=== PATIENT | male | born 1965 | race American Indian/Alaskan Native ===

== ENCOUNTER 2016-10-24 13:26 | Emergency (ER) | payer SELFPAY ==
[2016-10-24] MEDS ORDERED: NORCO 5/325 PO ONE (15:19)
--- NOTE | 2016-10-24 15:20 | Emergency Department Report ---
ED Lower Extremity HPI - General Chief Complaint: Extremity Injury, Lower Stated Complaint: RT LEG PAIN Time Seen by Provider: 10/24/16 14:55 Source: patient Mode of arrival: Ambulatory Limitations: No Limitations - History of Present Illness Initial Comments: 51M PMH obesity p/w c/o right knee pain s/o mechanical fall yesterday patient slipped on the sidewalk outside his home yesterday while walking outside of house, fell onto her right knee felt that he pulled his hamstring muscle. He shouldn't is ambulatory on exam not in acute distress states he took some Motrin at home which minimally relieved his pain. Sustained no lacerations denies any head trauma was able to get up immediately after the fall. Patient showing me the skin on his knee no visible ecchymosis and no laceration or abrasions. Patient is walking but has slight limp due to pain in his right knee. MD Complaint: thigh injury, knee injury Onset/Timin -: hour(s) Injury: Thigh: Right, Knee: Right Type of Injury: blunt, hyperextension Place: home Severity: moderate Severity scale (0 -10): 6 Improves With: immobilization Worsens With: weight bearing, movement Context: fall Associated Symptoms: swelling, able to partially bear weight, ambulatory - Related Data Home Medications Medication Instructions Recorded Confirmed Last Taken Hydrochlorothiazide 25 mg PO QDAY 02/09/14 09/22/14 09/22/14 Oxycodone HCl/Acetaminophen 1 tab PO BID PRN 02/09/14 09/22/14 09/22/14 [Percocet 10-325 mg] Previous Rx's Medication Instructions Recorded Last Taken Type HYDROcodone/APAP 5-325 [[place] 1 each PO Q6HR PRN #20 tablet 02/09/14 09/22/14 Rx 5/325] Ibuprofen [Motrin] 800 mg PO Q8H #30 tablet 02/09/14 09/22/14 Rx Acetaminophen/Codeine 1 tab PO Q6H PRN #15 tab 09/22/14 Unknown Rx [Acetaminophen-Codeine #3 TAB] Albuterol Sulfate [Proventil HFA] 1 - 2 puff IH Q4H PRN #1 hfa.aer.ad 09/22/14 Unknown Rx Azithromycin [Zithromax] 250 mg PO QDAY #6 tablet 09/22/14 Unknown Rx Ondansetron [Zofran] 4 mg PO Q8HR PRN #5 tablet 09/22/14 Unknown Rx predniSONE [Deltasone] 40 mg PO QDAY #10 tab 09/22/14 Unknown Rx Cyclobenzaprine [Flexeril 10 MG 10 mg PO TID PRN #30 tablet 12/05/14 Unknown Rx TAB] HYDROcodone/ACETAMINOPHEN [[place] 1 each PO Q8H PRN #21 tablet 12/05/14 Unknown Rx 7.5-325 mg TAB] Naproxen [Naprosyn TAB] 500 mg PO BID PRN #20 tablet 10/24/16 Unknown Rx traMADol [Ultram 50 MG tab] 50 mg PO Q6HR PRN #6 tablet 10/24/16 Unknown Rx Allergies Allergy/AdvReac Type Severity Reaction Status Date / Time No Known Allergies Allergy Verified 09/22/14 10:19 ED Review of Systems ROS: Stated complaint: RT LEG PAIN Other details as noted in HPI Constitutional: denies: chills, fever Eyes: denies: eye pain, eye discharge, vision change ENT: denies: ear pain, throat pain Respiratory: denies: cough, shortness of breath, wheezing Cardiovascular: denies: chest pain, palpitations Endocrine: no symptoms reported Gastrointestinal: denies: abdominal pain, nausea, diarrhea Genitourinary: denies: urgency, dysuria Musculoskeletal: denies: back pain, joint swelling, arthralgia Skin: denies: rash, lesions Neurological: denies: headache, weakness, paresthesias Psychiatric: denies: anxiety, depression Hematological/Lymphatic: denies: easy bleeding, easy bruising ED Past Medical Hx - Past Medical History Hx Hypertension: Yes Hx GERD: Yes Additional medical history: varicose veins. chronic back pain - Surgical History Additional Surgical History: hernia repair - Social History Smoking Status: Current Every Day Smoker Substance Use Type: None - Medications Home Medications: Home Medications Medication Instructions Recorded Confirmed Last Taken Type HYDROcodone/APAP 5-325 [[place] 1 each PO Q6HR PRN #20 tablet 02/09/14 09/22/14 Rx 5/325] Hydrochlorothiazide 25 mg PO QDAY 02/09/14 09/22/14 09/22/14 History Ibuprofen [Motrin] 800 mg PO Q8H #30 tablet 02/09/14 09/22/14 09/22/14 Rx Oxycodone HCl/Acetaminophen 1 tab PO BID PRN 02/09/14 09/22/14 09/22/14 History [Percocet 10-325 mg] Acetaminophen/Codeine 1 tab PO Q6H PRN #15 tab 09/22/14 Unknown Rx [Acetaminophen-Codeine #3 TAB] Albuterol Sulfate [Proventil HFA] 1 - 2 puff IH Q4H PRN #1 hfa.aer.ad 09/22/14 Unknown Rx Azithromycin [Zithromax] 250 mg PO QDAY #6 tablet 09/22/14 Unknown Rx Ondansetron [Zofran] 4 mg PO Q8HR PRN #5 tablet 09/22/14 Unknown Rx predniSONE [Deltasone] 40 mg PO QDAY #10 tab 09/22/14 Unknown Rx Cyclobenzaprine [Flexeril 10 MG 10 mg PO TID PRN #30 tablet 12/05/14 Unknown Rx TAB] HYDROcodone/ACETAMINOPHEN [[place] 1 each PO Q8H PRN #21 tablet 12/05/14 Unknown Rx 7.5-325 mg TAB] Naproxen [Naprosyn TAB] 500 mg PO BID PRN #20 tablet 10/24/16 Unknown Rx traMADol [Ultram 50 MG tab] 50 mg PO Q6HR PRN #6 tablet 10/24/16 Unknown Rx ED Physical Exam - General Limitations: No Limitations General appearance: alert, in no apparent distress - Head Head exam: Present: atraumatic, normocephalic - Eye Eye exam: Present: normal appearance, PERRL, EOMI - ENT ENT exam: Present: mucous membranes moist - Neck Neck exam: Present: normal inspection, full ROM - Respiratory Respiratory exam: Present: normal lung sounds bilaterally. Absent: respiratory distress - Cardiovascular Cardiovascular Exam: Present: regular rate, normal rhythm. Absent: systolic murmur, diastolic murmur, rubs, gallop - GI/Abdominal GI/Abdominal exam: Present: soft, normal bowel sounds - Rectal Rectal exam: Present: deferred - Extremities Exam Extremities exam: Present: normal inspection - Expanded Lower Extremity Exam Right Hip exam: Present: normal inspection, full ROM Upper Leg exam: Present: normal inspection, full ROM Knee exam: Present: normal inspection, full ROM, tenderness (mild tenderness medial right knee), posterior draw sign (negative anterior-posterior drawer sign ), pain/laxity with valgus (slight pain with valgus movement), full knee extension ( was able to fully extend knee against resistance) Lower Leg exam: Present: normal inspection, full ROM Ankle exam: Present: normal inspection, full ROM Foot/Toe exam: Present: normal inspection, full ROM Neuro vascular tendon exam: Present: no vascular compromise Gait: Positive: antalgic 1 - Mild tenderness to palpation here - Back Exam Back exam: Present: normal inspection - Neurological Exam Neurological exam: Present: alert, oriented X3, CN II-XII intact, normal gait - Psychiatric Psychiatric exam: Present: normal affect, normal mood - Skin Skin exam: Present: warm, dry, intact, normal color. Absent: rash ED Course Vital Signs 10/24/16 14:01 Temperature 98 F Pulse Rate 69 Respiratory 18 Rate Blood Pressure 156/86 O2 Sat by Pulse 100 Oximetry ED Lower Extremity MDM - Medical Decision Making A/P: Right Knee Sprain, mechanical fall 1-naproxen when necessary 2-RICE therapy, Nile wrap, knee immobilizer 3-follow-up with orthopedics 4-no clinical signs of neurovascular damage distal pulses popliteal distal dorsalis pedis and posterior tibial pulses strong to palpation. No lacerations. Mild pain with valgus movement patient may have hurt his meniscus will give follow-up with orthopedics. Negative anterior-posterior drawer sign. Critical care attestation.: If time is entered above; I have spent that time in minutes in the direct care of this critically ill patient, excluding procedure time. ED Disposition Clinical Impression: Right knee sprain Qualifiers: Encounter type: initial encounter Involved ligament of knee: medial collateral ligament Qualified Code(s): S83.411A - Sprain of medial collateral ligament of right knee, initial encounter Disposition: DISCHARGED TO HOME OR SELFCARE Is pt being admited?: No Does the pt Need Aspirin: No Condition: Stable Instructions: Knee Pain (ED), RICE Therapy (ED), Knee Immobilizer (ED) Prescriptions: Naproxen [Naprosyn TAB] 500 mg PO BID PRN #20 tablet PRN Reason: Pain traMADol [Ultram 50 MG tab] 50 mg PO Q6HR PRN #6 tablet PRN Reason: Pain Referrals: MELANY MAST MD [Staff Physician] - 3-5 Days Forms: Work/School Release Form(ED), Accompanied Note Time of Disposition: 17:12
--- NOTE | 2016-10-24 17:07 | XRay Report ---
FINAL REPORT PROCEDURE: Four view right knee series TECHNIQUE: RIGHT knee radiographs, 4 or more views, including AP, lateral, and oblique and sunrise view. CPT 93648 HISTORY: knee pain s/p fall COMPARISON: No prior studies are available for comparison. FINDINGS: No fracture, dislocation or joint effusion is seen. Small spur projects superiorly from the upper pole of the patella. Joint spaces are well preserved. IMPRESSION: No acute abnormalities are seen. No fracture or dislocation identified..
[2016-10-24 17:34] VITALS: BP 148/84
== END 2016-10-24 17:33 | disposition home or self-care (01) ==
LOC: ED 13:26
DX: S83.411A Sprain of medial collateral ligament of right knee, initial encounter (principal); I10 Essential (primary) hypertension; K21.9 Gastro-esophageal reflux disease without esophagitis; G89.29 Other chronic pain; F17.200 Nicotine dependence, unspecified, uncomplicated; W18.30XA Fall on same level, unspecified, initial encounter; Y93.89 Activity, other specified; Y99.8 Other external cause status; Y92.009 Unspecified place in unspecified non-institutional (private) residence as the place of occurrence of the external cause

== ENCOUNTER 2017-07-27 21:04 | Emergency (ER) | payer BC ==
--- NOTE | 2017-07-28 02:47 | XRay Report ---
FINAL REPORT EXAM: XR CHEST ROUTINE 2V HISTORY: worsening cough TECHNIQUE: PA and lateral views of the chest were submitted. FINDINGS: Heart size and mediastinum appear normal. The lungs are clear. Pleural fluid is not seen. The bones and soft tissues do not show any acute changes. IMPRESSION: No active chest disease.
[2017-07-28] MEDS ORDERED: GUAIFENESIN DM SYRUP PO ONE (03:07)
[2017-07-28] MEDS ORDERED: MOTRIN PO ONE (03:08)
[2017-07-28] MEDS ORDERED: DUONEB *Not for PRN Use IH ONE (04:01)
--- NOTE | 2017-07-28 04:45 | Emergency Department Report ---
- General Chief Complaint: Upper Respiratory Infection Stated Complaint: SHORT OF BREATH Time Seen by Provider: 07/28/17 02:21 Source: patient Mode of arrival: Ambulatory Limitations: No Limitations - History of Present Illness Initial Comments: 52-year-old male past medical history obesity, smoker, hypertension presents with complaint of 3 days of body aches cough slightly productive with yellowish sputum and sinus congestion sore throat and subjective fever chills. Patient states that he has been coughing more than usual. Denies any bloody cough. Patient is awake alert and oriented 3 fully lucid. States after coughing fits in his upper chest/throat he gets some discomfort which dissipates after coughing. Patient states he has not taken any medicines for her symptoms at home. Denies any recent travel denies pleuritic chest pain denies any shortness of breath at rest. States he is still actively smoking. MD Complaint: fever, cough, rhinorrhea, nasal congestion Onset/Timin -: days(s) Severity: mild Consistency: intermittent Improves With: OTC cold medicine Associated Symptoms: cough - Related Data Home Medications Medication Instructions Recorded Confirmed Last Taken Hydrochlorothiazide 25 mg PO QDAY 02/09/14 09/22/14 09/22/14 Oxycodone HCl/Acetaminophen 1 tab PO BID PRN 02/09/14 09/22/14 09/22/14 [Percocet 10-325 mg] Previous Rx's Medication Instructions Recorded Last Taken Type HYDROcodone/APAP 5-325 [[place] 1 each PO Q6HR PRN #20 tablet 02/09/14 09/22/14 Rx 5/325] Ibuprofen [Motrin] 800 mg PO Q8H #30 tablet 02/09/14 09/22/14 Rx Albuterol Sulfate [Proventil HFA] 1 - 2 puff IH Q4H PRN #1 hfa.aer.ad 09/22/14 Unknown Rx Azithromycin [Zithromax] 250 mg PO QDAY #6 tablet 09/22/14 Unknown Rx Ondansetron [Zofran] 4 mg PO Q8HR PRN #5 tablet 09/22/14 Unknown Rx predniSONE [Deltasone] 40 mg PO QDAY #10 tab 09/22/14 Unknown Rx Cyclobenzaprine [Flexeril 10 MG 10 mg PO TID PRN #30 tablet 12/05/14 Unknown Rx TAB] HYDROcodone/ACETAMINOPHEN [[place] 1 each PO Q8H PRN #21 tablet 12/05/14 Unknown Rx 7.5-325 mg TAB] Naproxen [Naprosyn TAB] 500 mg PO BID PRN #20 tablet 10/24/16 Unknown Rx traMADol [Ultram 50 MG tab] 50 mg PO Q6HR PRN #6 tablet 10/24/16 Unknown Rx Acetaminophen/Codeine [Tylenol 1 tab PO Q6H PRN #15 tab 05/23/17 Unknown Rx /Codeine # 3 tab] Ibuprofen [Motrin] 600 mg PO Q8H PRN #15 tablet 05/23/17 Unknown Rx Penicillin V Potassium 500 mg PO Q8H #30 tablet 05/23/17 Unknown Rx ALBUTEROL Inhaler [ProAir HFA 1 puff IH Q4H PRN #1 inha 07/28/17 Unknown Rx Inhaler] Azithromycin [Zithromax Z-HEMANT] 250 mg PO QDAY #1 pack 07/28/17 Unknown Rx Benzonatate [Tessalon Perles] 100 mg PO Q8HR PRN #30 capsule 07/28/17 Unknown Rx Dextromethorphan Hb/Doxylamine 10 ml PO Q6H PRN #1 liquid 07/28/17 Unknown Rx [Safetussin Pm Liquid] Dextromethorphan/Benzocaine 1 each PO Q4H PRN #1 box 07/28/17 Unknown Rx [Cepacol Sorethroat-Cough Best] Naproxen 500 mg PO BID PRN #30 tablet 07/28/17 Unknown Rx Allergies Allergy/AdvReac Type Severity Reaction Status Date / Time No Known Allergies Allergy Verified 07/27/17 21:06 ED Review of Systems ROS: Stated complaint: SHORT OF BREATH Other details as noted in HPI Constitutional: malaise. denies: chills, fever Eyes: denies: eye pain, eye discharge, vision change ENT: throat pain. denies: ear pain Respiratory: cough. denies: shortness of breath, wheezing Cardiovascular: denies: chest pain, palpitations Endocrine: no symptoms reported Gastrointestinal: denies: abdominal pain, nausea, diarrhea Genitourinary: denies: urgency, dysuria Musculoskeletal: denies: back pain, joint swelling, arthralgia Skin: denies: rash, lesions Neurological: denies: headache, weakness, paresthesias Psychiatric: denies: anxiety, depression Hematological/Lymphatic: denies: easy bleeding, easy bruising ED Past Medical Hx - Past Medical History Hx Hypertension: Yes Hx GERD: Yes Additional medical history: varicose veins. chronic back pain - Surgical History Additional Surgical History: hernia repair - Social History Smoking Status: Current Every Day Smoker Substance Use Type: Alcohol - Medications Home Medications: Home Medications Medication Instructions Recorded Confirmed Last Taken Type HYDROcodone/APAP 5-325 [[place] 1 each PO Q6HR PRN #20 tablet 02/09/14 09/22/14 Rx 5/325] Hydrochlorothiazide 25 mg PO QDAY 02/09/14 09/22/14 09/22/14 History Ibuprofen [Motrin] 800 mg PO Q8H #30 tablet 02/09/14 09/22/14 09/22/14 Rx Oxycodone HCl/Acetaminophen 1 tab PO BID PRN 02/09/14 09/22/14 09/22/14 History [Percocet 10-325 mg] Albuterol Sulfate [Proventil HFA] 1 - 2 puff IH Q4H PRN #1 hfa.aer.ad 09/22/14 Unknown Rx Azithromycin [Zithromax] 250 mg PO QDAY #6 tablet 09/22/14 Unknown Rx Ondansetron [Zofran] 4 mg PO Q8HR PRN #5 tablet 09/22/14 Unknown Rx predniSONE [Deltasone] 40 mg PO QDAY #10 tab 09/22/14 Unknown Rx Cyclobenzaprine [Flexeril 10 MG 10 mg PO TID PRN #30 tablet 12/05/14 Unknown Rx TAB] HYDROcodone/ACETAMINOPHEN [[place] 1 each PO Q8H PRN #21 tablet 12/05/14 Unknown Rx 7.5-325 mg TAB] Naproxen [Naprosyn TAB] 500 mg PO BID PRN #20 tablet 10/24/16 Unknown Rx traMADol [Ultram 50 MG tab] 50 mg PO Q6HR PRN #6 tablet 10/24/16 Unknown Rx Acetaminophen/Codeine [Tylenol 1 tab PO Q6H PRN #15 tab 05/23/17 Unknown Rx /Codeine # 3 tab] Ibuprofen [Motrin] 600 mg PO Q8H PRN #15 tablet 05/23/17 Unknown Rx Penicillin V Potassium 500 mg PO Q8H #30 tablet 05/23/17 Unknown Rx ALBUTEROL Inhaler [ProAir HFA 1 puff IH Q4H PRN #1 inha 07/28/17 Unknown Rx Inhaler] Azithromycin [Zithromax Z-HEMANT] 250 mg PO QDAY #1 pack 07/28/17 Unknown Rx Benzonatate [Tessalon Perles] 100 mg PO Q8HR PRN #30 capsule 07/28/17 Unknown Rx Dextromethorphan Hb/Doxylamine 10 ml PO Q6H PRN #1 liquid 07/28/17 Unknown Rx [Safetussin Pm Liquid] Dextromethorphan/Benzocaine 1 each PO Q4H PRN #1 box 07/28/17 Unknown Rx [Cepacol Sorethroat-Cough Best] Naproxen 500 mg PO BID PRN #30 tablet 07/28/17 Unknown Rx ED Physical Exam - General Limitations: No Limitations General appearance: alert, in no apparent distress - Head Head exam: Present: atraumatic, normocephalic - Eye Eye exam: Present: normal appearance, PERRL, EOMI - ENT ENT exam: Present: mucous membranes moist - Neck Neck exam: Present: normal inspection - Respiratory Respiratory exam: Present: normal lung sounds bilaterally. Absent: respiratory distress - Cardiovascular Cardiovascular Exam: Present: regular rate, normal rhythm. Absent: systolic murmur, diastolic murmur, rubs, gallop - GI/Abdominal GI/Abdominal exam: Present: soft (abdomen soft nontender nondistended 4 quadrants), normal bowel sounds - Rectal Rectal exam: Present: deferred - Extremities Exam Extremities exam: Present: normal inspection - Back Exam Back exam: Present: normal inspection - Neurological Exam Neurological exam: Present: alert, oriented X3, CN II-XII intact, normal gait - Psychiatric Psychiatric exam: Present: normal affect, normal mood - Skin Skin exam: Present: warm, dry, intact, normal color. Absent: rash ED Course Vital Signs 07/27/17 07/28/17 07/28/17 21:07 04:45 05:57 Temperature 100.5 F H 98.7 F 98.3 F Pulse Rate 80 89 80 Respiratory 20 26 H 18 Rate Blood Pressure 153/71 Blood Pressure 134/76 118/75 [Right] O2 Sat by Pulse 97 96 95 Oximetry ED Medical Decision Making - Lab Data Result diagrams: 07/28/17 05:00 07/28/17 05:00 - Medical Decision Making A/P: Acute bronchitis, reactive airway disease, coughing, URI 1-as patient is heavy smoker will treat him empirically with azithromycin secondary to symptoms of upper airway infection 2-Safetussin prn, Tessalon Perles, albuterol inhaler, naproxen when necessary 3-flu swab negative, strep swab negative, chest x-ray unremarkable, as patient stated he initially had some shortness of breath EKG and troponin performed, both negative. D-dimer negative, lactic acid unremarkable. BNP unremarkable patient slightly dehydrated given 1 L of IV fluid via IV and patient is tolerating by mouth fluids without difficulty 4- patient feels symptomatically better before discharge, vital signs stable. No audible wheezing stridor or respiratory distress 5-I advised patient to follow-up with primary care and return to the ED for any associated chest pain shortness of breath at rest or worsening fever or chills despite use of prescription medicines Critical care attestation.: If time is entered above; I have spent that time in minutes in the direct care of this critically ill patient, excluding procedure time. ED Disposition Clinical Impression: Acute bronchitis Qualifiers: Bronchitis organism: unspecified organism Qualified Code(s): J20.9 - Acute bronchitis, unspecified Upper respiratory infection Qualifiers: URI type: unspecified URI Qualified Code(s): J06.9 - Acute upper respiratory infection, unspecified Reactive airway disease Qualifiers: Asthma severity: mild Asthma persistence: intermittent Asthma complication type : uncomplicated Qualified Code(s): J45.20 - Mild intermittent asthma, uncomplicated Disposition: DC- TO HOME OR SELFCARE Is pt being admited?: No Does the pt Need Aspirin: No Condition: Stable Instructions: Acute Bronchitis (ED), Reactive Airways Disease (ED) Prescriptions: ALBUTEROL Inhaler [ProAir HFA Inhaler] 1 puff IH Q4H PRN #1 inha PRN Reason: Wheezing Azithromycin [Zithromax Z-HEMANT] 250 mg PO QDAY #1 pack Benzonatate [Tessalon Perles] 100 mg PO Q8HR PRN #30 capsule PRN Reason: Cough Dextromethorphan Hb/Doxylamine [Safetussin Pm Liquid] 10 ml PO Q6H PRN #1 liquid PRN Reason: Cough Dextromethorphan/Benzocaine [Cepacol Sorethroat-Cough Best] 1 each PO Q4H PRN #1 box PRN Reason: Cough Naproxen 500 mg PO BID PRN #30 tablet PRN Reason: Fever Ref[place]: [facility] [place] [facility] [place] - 3-5 Days [facility] [Outside] - 3-5 Days Forms: Work/School Release Form(ED) Time of Disposition: 06:17
[2017-07-28] MEDS ORDERED: NACL 0.9% 1000 ML 1,000 ML IV ONE (04:48)
[2017-07-28 05:22] LABS: Basophils # (Auto) 0.1 K/mm3 (0.0-0.1); Basophils % (Auto) 1.3 % (0.0-1.8); Eosinophils % (Auto) 0.1 % (0.0-4.3); Hematocrit 43.4 % (35.5-45.6); Hemoglobin 14.1 gm/dl (11.8-15.2); Lymphocytes % (Auto) 17.4 % (13.4-35.0); Mean Corpuscular HGB Conc 33 % (32-34); Mean Corpuscular Hemoglobin 29 pg (28-32); Mean Corpuscular Volume 88 fl (84-94); Monocytes # (Auto) 0.5 K/mm3 (0.0-0.8); Monocytes % (Auto) 9.4 % (0.0-7.3); Platelet Count 257 K/mm3 (140-440); Red Blood Count 4.91 M/mm3 (3.65-5.03); Red Cell Distribution Width 13.7 % (13.2-15.2)
[2017-07-28 05:40] LABS: BUN/Creatinine Ratio 11; Blood Urea Nitrogen 13 mg/dL (9-20); Calcium 8.9 mg/dL (8.4-10.2); Hemolysis Index 6
[2017-07-28 05:58] VITALS: BP 118/75
== END 2017-07-28 06:34 | disposition home or self-care (01) ==
LOC: ED 21:04
DX: J45.20 Mild intermittent asthma, uncomplicated (principal); J20.9 Acute bronchitis, unspecified; J06.9 Acute upper respiratory infection, unspecified; I10 Essential (primary) hypertension; K21.9 Gastro-esophageal reflux disease without esophagitis; G89.29 Other chronic pain; F17.200 Nicotine dependence, unspecified, uncomplicated; E66.8 Other obesity
CPT/HCPCS: 36415; 71046; 80048; 82140; 82550; 84484; 85025; 85379; 87116; 87400; 87430; 93005; 93010; 94640; 96360; 99284; J7030

== ENCOUNTER 2018-01-23 12:31 | Emergency (ER) | payer SELFPAY ==
[2018-01-23 12:40] VITALS: BP 123/84
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
== END 2018-01-23 15:00 | disposition home or self-care (01) ==
LOC: ED 12:31
DX: M54.5 Low back pain (principal); G89.29 Other chronic pain
CPT/HCPCS: 99282

== ENCOUNTER 2018-07-31 23:49 | Emergency (ER) | payer MEDICAID ==
--- NOTE | 2018-08-01 04:51 | Emergency Department Report ---
<BRANDON SOTELO A - Last Filed: 08/01/18 10:42> ED Headache HPI - General Chief Complaint: Headache Stated Complaint: BLOOD PRESSURE Time Seen by Provider: 08/01/18 04:25 - History of Present Illness Allergies/Adverse Reactions: Allergies No Known Allergies Allergy (Verified 07/27/17 21:06) Home Medications: Ambulatory Orders HYDROcodone/APAP 5-325 [[place] 5/325] 1 each PO Q6HR PRN #20 tablet 02/09/14 Ibuprofen [Motrin] 800 mg PO Q8H #30 tablet 02/09/14 Oxycodone HCl/Acetaminophen [Percocet 10-325 mg] 1 tab PO BID PRN 02/09/14 hydroCHLOROthiazide [Hydrochlorothiazide] 25 mg PO QDAY 02/09/14 Albuterol Sulfate [Proventil HFA] 1 - 2 puff IH Q4H PRN #1 hfa.aer.ad 09/22/14 Azithromycin [Zithromax] 250 mg PO QDAY #6 tablet 09/22/14 Ondansetron [Zofran] 4 mg PO Q8HR PRN #5 tablet 09/22/14 predniSONE [Deltasone] 40 mg PO QDAY #10 tab 09/22/14 Cyclobenzaprine [Flexeril 10 MG TAB] 10 mg PO TID PRN #30 tablet 12/05/14 HYDROcodone/ACETAMINOPHEN [[place] 7.5-325 mg TAB] 1 each PO Q8H PRN #21 tablet 12/05/14 Naproxen [Naprosyn TAB] 500 mg PO BID PRN #20 tablet 10/24/16 traMADol [Ultram 50 MG tab] 50 mg PO Q6HR PRN #6 tablet 10/24/16 Ibuprofen [Motrin] 600 mg PO Q8H PRN #15 tablet 05/23/17 Penicillin V Potassium 500 mg PO Q8H #30 tablet 05/23/17 ALBUTEROL Inhaler (OR & NICU) [ProAir HFA Inhaler] 1 puff IH Q4H PRN #1 inha 07/28/17 Azithromycin [Zithromax Z-HEMANT] 250 mg PO QDAY #1 pack 07/28/17 Benzonatate [Tessalon Perles] 100 mg PO Q8HR PRN #30 capsule 07/28/17 Dextromethorphan Hb/Doxylamine [Safetussin Pm Liquid] 10 ml PO Q6H PRN #1 liquid 07/28/17 Dextromethorphan/Benzocaine [Cepacol Sorethroat-Cough Best] 1 each PO Q4H PRN #1 box 07/28/17 Naproxen 500 mg PO BID PRN #30 tablet 07/28/17 methOCARBAMOL [Robaxin TAB] 500 mg PO Q6H PRN #15 tablet 01/23/18 Acetaminophen/Codeine [Tylenol /Codeine # 3 tab] 1 tab PO Q6H PRN #15 tab 08/01/18 Ibuprofen [Motrin 800 MG tab] 800 mg PO Q8HR PRN #20 tablet 08/01/18 ED Review of Systems Comment: All other systems reviewed and negative ED Past Medical Hx - Medications Home Medications: Home Medications Medication Instructions Recorded Confirmed Last Taken Type HYDROcodone/APAP 5-325 [[place] 1 each PO Q6HR PRN #20 tablet 02/09/14 09/22/14 09/22/14 Rx 5/325] Ibuprofen [Motrin] 800 mg PO Q8H #30 tablet 02/09/14 09/22/14 09/22/14 Rx Oxycodone HCl/Acetaminophen 1 tab PO BID PRN 02/09/14 09/22/14 09/22/14 History [Percocet 10-325 mg] hydroCHLOROthiazide 25 mg PO QDAY 02/09/14 09/22/14 09/22/14 History [Hydrochlorothiazide] Albuterol Sulfate [Proventil HFA] 1 - 2 puff IH Q4H PRN #1 hfa.aer.ad 09/22/14 Unknown Rx Azithromycin [Zithromax] 250 mg PO QDAY #6 tablet 09/22/14 Unknown Rx Ondansetron [Zofran] 4 mg PO Q8HR PRN #5 tablet 09/22/14 Unknown Rx predniSONE [Deltasone] 40 mg PO QDAY #10 tab 09/22/14 Unknown Rx Cyclobenzaprine [Flexeril 10 MG 10 mg PO TID PRN #30 tablet 12/05/14 Unknown Rx TAB] HYDROcodone/ACETAMINOPHEN [[place] 1 each PO Q8H PRN #21 tablet 12/05/14 Unknown Rx 7.5-325 mg TAB] Naproxen [Naprosyn TAB] 500 mg PO BID PRN #20 tablet 10/24/16 Unknown Rx traMADol [Ultram 50 MG tab] 50 mg PO Q6HR PRN #6 tablet 10/24/16 Unknown Rx Ibuprofen [Motrin] 600 mg PO Q8H PRN #15 tablet 05/23/17 Unknown Rx Penicillin V Potassium 500 mg PO Q8H #30 tablet 05/23/17 Unknown Rx ALBUTEROL Inhaler (OR & NICU) 1 puff IH Q4H PRN #1 inha 07/28/17 Unknown Rx [ProAir HFA Inhaler] Azithromycin [Zithromax Z-HEMANT] 250 mg PO QDAY #1 pack 07/28/17 Unknown Rx Benzonatate [Tessalon Perles] 100 mg PO Q8HR PRN #30 capsule 07/28/17 Unknown Rx Dextromethorphan Hb/Doxylamine 10 ml PO Q6H PRN #1 liquid 07/28/17 Unknown Rx [Safetussin Pm Liquid] Dextromethorphan/Benzocaine 1 each PO Q4H PRN #1 box 07/28/17 Unknown Rx [Cepacol Sorethroat-Cough Best] Naproxen 500 mg PO BID PRN #30 tablet 07/28/17 Unknown Rx methOCARBAMOL [Robaxin TAB] 500 mg PO Q6H PRN #15 tablet 01/23/18 Unknown Rx Acetaminophen/Codeine [Tylenol 1 tab PO Q6H PRN #15 tab 08/01/18 Unknown Rx /Codeine # 3 tab] Ibuprofen [Motrin 800 MG tab] 800 mg PO Q8HR PRN #20 tablet 08/01/18 Unknown Rx ED Physical Exam - ENT ENT exam: Present: other (trach present, no swelling around her trach, no bleeding. Looks within normal limits) - Expanded ENT Exam Expanded Mouth exam: Present: normal external inspection - Neurological Exam Neurological exam: Present: alert, oriented X3, normal gait. Absent: motor sensory deficit ED Medical Decision Making - Lab Data Result diagrams: 08/01/18 07:21 08/01/18 07:21 - Radiology Data Radiology results: report reviewed, image reviewed FINAL REPORT EXAM: CT NECK W CON HISTORY: finding on prior ct, LEFT SIDE NECK PAIN, PT POOR HISTORIAN TECHNIQUE: CT of the neck performed. IV contrast was administered. Axial images and coronal and sagittal reformatted images were obtained. PRIORS: Noncontrast study of 08/01/2018 FINDINGS: There is abnormal poorly defined soft tissue density in the left oropharyngeal region extending into the parapharyngeal tissues, extending into the carotid space, surrounding carotid artery, and extending peripherally towards the platysma muscle. Findings could represent infiltrating tumor or could represent extensive inflammatory process. Process narrows the left internal carotid artery. Findings are very similar to the recent noncontrast exam. A no abnormal fluid collection/abscess seen. The paranasal sinuses are clear. The left parotid gland is unremarkable. The right is atrophic. There are bilateral postoperative findings in the neck. Correlate with history. The patient has a tracheostomy tube. IMPRESSION: Extensive abnormal soft tissue density extending from the left oropharynx into the left parapharyngeal tissues, carotid space and lateral aspect of left neck. This could be infiltrating tumor or could represent extensive inflammatory process. Note that this process appears to significantly narrow the left internal carotid artery. Transcribed By: EDEN Dictated By: HERACLIO VERONICA MD Electronically Authenticated By: HERACLIO VERONICA MD Signed Date/Time: 08/01/18 0948 - Medical Decision Making This 53-year-old male origin presents with headache and was complaining of neck pain. CT scan of the neck shows no acute findings, mild inflammatory process. I discussed findings with the patient. I discussed the patient was sent normal pain medication for his headache and for his neck pain. I discussed with the patient to follow-up with his oncologist and primary care physician. Patient verbalized cyst in that he understands instructions and will follow-up Patient is in no acute or respiratory distress. ED Disposition Clinical Impression: Headache Disposition: DC-01 TO HOME OR SELFCARE Is pt being admited?: No Does the pt Need Aspirin: No Condition: Stable Instructions: Tracheostomy Care (ED), Acute Headache (ED) Additional Instructions: Make sure to follow up with the oncologist/primary care physician as discussed. Take all your medications as you've been prescribed. If you have any worsening symptoms or develop new symptoms please return to ED immediately. Prescriptions: Acetaminophen/Codeine [Tylenol /Codeine # 3 tab] 1 tab PO Q6H PRN #15 tab PRN Reason: Pain Ibuprofen [Motrin 800 MG tab] 800 mg PO Q8HR PRN #20 tablet PRN Reason: Pain Referrals: PRIMARY CARE, [Primary Care Provider] - 3-5 Days [facility] [Provider Group] - 3-5 Days Forms: Work/School Release Form(ED) Time of Disposition: 10:49 <AARON HANCOCK - Last Filed: 08/02/18 19:43> ED Headache HPI - History of Present Illness Initial Comments: 53-year-old -[place] male with a past medical history throat cancer that is currently training comes in reporting that he felt like his blood pressure was low. Patient came in was told his blood pressure was fine stating he has a headache that started 2 hours ago and he took pain medicine prior to arrival. Patient is a poor historian as he has a trach and not able to comprehend much of what patient is saying as well as patient appears to be in A as when asked for him to write down why he is here with his concerns he is not able to do that task. Patient kept pointing to his throat when asked what was wrong with him. Patient is currently followed by [place] [facility]. ED Review of Systems ROS: Stated complaint: BLOOD PRESSURE Other details as noted in HPI ED Past Medical Hx - Past Medical History Previous Medical History?: Yes Hx Hypertension: Yes Hx GERD: Yes Additional medical history: varicose veins. chronic back pain - Surgical History Past Surgical History?: Yes Additional Surgical History: hernia repair, Trach - Social History Smoking Status: Former Smoker Substance Use Type: None ED Physical Exam - General Limitations: No Limitations ED Course Vital Signs 08/01/18 08/01/18 00:19 11:07 Temperature 98.3 F Pulse Rate 76 76 Respiratory 20 18 Rate Blood Pressure 132/89 Blood Pressure 158/104 [Right] O2 Sat by Pulse 97 97 Oximetry ED Medical Decision Making - Lab Data Result diagrams: 08/01/18 07:21 08/01/18 07:21 Lab Results 08/01/18 08/01/18 Range/Units 07:21 07:21 WBC 6.2 (4.5-11.0) K/mm3 RBC 4.26 (3.65-5.03) M/mm3 Hgb 11.8 (11.8-15.2) gm/dl Hct 36.5 (35.5-45.6) % MCV 86 (84-94) fl MCH 28 (28-32) pg MCHC 32 (32-34) % RDW 13.5 (13.2-15.2) % Plt Count 380 (140-440) K/mm3 Lymph % (Auto) 18.4 (13.4-35.0) % [place] % (Auto) 9.7 H (0.0-7.3) % Eos % (Auto) 2.8 (0.0-4.3) % Baso % (Auto) 0.8 (0.0-1.8) % Lymph # 1.1 L (1.2-5.4) K/mm3 [place] # 0.6 (0.0-0.8) K/mm3 Eos # 0.2 (0.0-0.4) K/mm3 Baso # 0.0 (0.0-0.1) K/mm3 Seg Neutrophils % 68.3 (40.0-70.0) % Seg Neutrophils # 4.2 (1.8-7.7) K/mm3 Sodium 141 (137-145) mmol/L Potassium 3.8 (3.6-5.0) mmol/L Chloride 101.5 (98-107) mmol/L Carbon Dioxide 28 (22-30) mmol/L Anion Gap 15 mmol/L BUN 4 L (9-20) mg/dL Creatinine 0.7 L (0.8-1.5) mg/dL Estimated GFR > 60 ml/min BUN/Creatinine Ratio 6 % Glucose 91 (75-100) mg/dL Calcium 9.8 (8.4-10.2) mg/dL Total Bilirubin 0.40 (0.1-1.2) mg/dL AST 12 (5-40) units/L ALT 7 (7-56) units/L Alkaline Phosphatase 91 (35-129) units/L Total Protein 7.1 (6.3-8.2) g/dL Albumin 4.1 (3.9-5) g/dL Albumin/Globulin Ratio 1.4 % Critical care attestation.: If time is entered above; I have spent that time in minutes in the direct care of this critically ill patient, excluding procedure time.
--- NOTE | 2018-08-01 06:54 | Cat Scan Report ---
FINAL REPORT EXAM: CT HEAD/BRAIN WO CON HISTORY: headache with history of throat cancer TECHNIQUE: CT imaging acquired through the head without intravenous contrast. Transaxial reformatio ns are provided. PRIORS: None. FINDINGS: The ventricles, cisterns and sulci are within normal limits. No intraparenchymal or extra-axial mass, hemorrhage, or mass effect. Barr and white-matter differentiation is within normal limits for patie nt age. Normal spherical shape of the globes. No significant abnormality involving the imaged portions of the paranasal sinuses and mastoid air cells. No skull or facial fracture visualized. IMPRESSION: No acute intracranial abnormality. Consider follow-up MRI with contrast for persistent/worsening symp toms.
--- NOTE | 2018-08-01 07:06 | Cat Scan Report ---
FINAL REPORT EXAM: CT NECK WO CON HISTORY: soft tissue neck pain TECHNIQUE: CT images are acquired through the neck without contrast. Transaxial , coronal and sagitt al reformations are provided. PRIORS: None provided. FINDINGS: A tracheostomy tube is present with tip terminating near the clavicular heads. Involving the base of the tongue and floor of the mouth there is asymmetric mixed soft tissue and a f luid attenuation measuring approximately 4.6 x 2.7 cm on axial series 2, image 28. Examination is com promised by lack of intravenous contrast as well as dental related streak artifact. The airway is dev iated to the right and there is trans spatial edema. No significant effacement or mass effect identif ied involving the parapharyngeal fat. Surgical clips are scattered throughout the right and left neck . Anterior triangle right-sided surgical defect. Fatty atrophy of the right parotid gland. No lymphad enopathy a defined within limits of noncontrast CT. Linear right upper lung scarring may be related to prior radiation treatment. The cervical spine is i ntact. Imaged portion of the posterior fossa demonstrates a grossly unremarkable noncontrast appearan ce. IMPRESSION: Mix soft tissue in fluid attenuation involving the left base of the tongue and floor of the mouth may be due to recurrence of disease in the setting of prior malignancy versus infection or inflammatory sequela of prior radiation. Correlation with patient's symptoms and with prior post treatment imaging is requested. Tracheostomy tube terminates at the level of the clavicular heads in satisfactory position. Dr. Loving discussed findings with SILVESTRE Gallardo at 0559 [address] Time on 08/01/2018 immediately following the examination.
[2018-08-01 07:43] LABS: Basophils % (Auto) 0.8 % (0.0-1.8); Eosinophils # (Auto) 0.2 K/mm3 (0.0-0.4); Eosinophils % (Auto) 2.8 % (0.0-4.3); Hematocrit 36.5 % (35.5-45.6); Hemoglobin 11.8 gm/dl (11.8-15.2); Lymphocytes # (Auto) 1.1 K/mm3 (1.2-5.4); Lymphocytes % (Auto) 18.4 % (13.4-35.0); Mean Corpuscular HGB Conc 32 % (32-34); Mean Corpuscular Volume 86 fl (84-94); Monocytes # (Auto) 0.6 K/mm3 (0.0-0.8); Monocytes % (Auto) 9.7 % (0.0-7.3); Platelet Count 380 K/mm3 (140-440); Red Blood Count 4.26 M/mm3 (3.65-5.03); Red Cell Distribution Width 13.5 % (13.2-15.2)
[2018-08-01 07:53] LABS: Alanine Aminotransferase 7 units/L (7-56); Albumin 4.1 g/dL (3.9-5); BUN/Creatinine Ratio 6; Blood Urea Nitrogen 4 mg/dL (9-20); Calcium 9.8 mg/dL (8.4-10.2); Hemolysis Index 3
[2018-08-01] MEDS ORDERED: MORPHINE IV ONE (09:05)
[2018-08-01] MEDS ORDERED: MORPHINE ONE (09:08)
--- NOTE | 2018-08-01 09:48 | Cat Scan Report ---
FINAL REPORT EXAM: CT NECK W CON HISTORY: finding on prior ct, LEFT SIDE NECK PAIN, PT POOR HISTORIAN TECHNIQUE: CT of the neck performed. IV contrast was administered. Axial images and coronal and sag ittal reformatted images were obtained. PRIORS: Noncontrast study of 08/01/2018 FINDINGS: There is abnormal poorly defined soft tissue density in the left oropharyngeal region extending into the parapharyngeal tissues, extending into the carotid space, surrounding carotid artery, and extendi ng peripherally towards the platysma muscle. Findings could represent infiltrating tumor or could rep resent extensive inflammatory process. Process narrows the left internal carotid artery. Findings are very similar to the recent noncontrast exam. A no abnormal fluid collection/abscess seen. The parana wilmer sinuses are clear. The left parotid gland is unremarkable. The right is atrophic. There are bilat eral postoperative findings in the neck. Correlate with history. The patient has a tracheostomy tube. IMPRESSION: Extensive abnormal soft tissue density extending from the left oropharynx into the left parapharyngea l tissues, carotid space and lateral aspect of left neck. This could be infiltrating tumor or could r epresent extensive inflammatory process. Note that this process appears to significantly narrow the l eft internal carotid artery.
[2018-08-01 11:08] VITALS: BP 158/104
== END 2018-08-01 11:07 | disposition home or self-care (01) ==
LOC: ED 23:49
DX: R51 Headache (principal); I10 Essential (primary) hypertension; K21.9 Gastro-esophageal reflux disease without esophagitis; G89.29 Other chronic pain; Z87.891 Personal history of nicotine dependence; Z79.899 Other long term (current) drug therapy
CPT/HCPCS: 36415; 70450; 70490; 70491; 80053; 85025; 96374; 99284; J2270; Q9967

== ENCOUNTER 2018-08-07 02:05 | Emergency (ER) | payer MEDICAID ==
[2018-08-07] MEDS ORDERED: ZOFRAN ONE (04:16)
[2018-08-07] MEDS ORDERED: DILAUDID ONE (04:17)
[2018-08-07] MEDS ORDERED: ZOFRAN IV ONE (04:28)
[2018-08-07] MEDS ORDERED: DILAUDID IV ONE (04:29)
--- NOTE | 2018-08-07 06:08 | Emergency Department Report ---
ED Neck Pain/Injury HPI - General Chief Complaint: Headache Stated Complaint: FACE PAIN/SWELLING Time Seen by Provider: 08/07/18 03:36 Mode of arrival: Ambulatory Limitations: Physical Limitation - History of Present Illness Initial Comments: 53-year-old male with a past medical history of piriformis cancer, tracheostomy, GERD, and hypertension, presents to the hospital with complains of chronic neck pain. Pain has been ongoing for at least 5 weeks. Patient is currently receiving experimental cancer treatment for his neck at [facility]. He is also in pain management and takes oxycodone 15 mg. Despite this this and has had recent recurrent visits to the hospital here with pain related complaints. He is scheduled to see his pain management doctor point August 11. Patient looks comfortable without any acute distress at this time but states his neck is hurting him. Patient denies fever or difficulty breathing. Medical record review. Patient had a CT head and a CT neck with and without contrast, J Ferdinand 2018. CT neck with contrast was abnormal and suggestive of an inflammatory process or infiltrating tumor. - Related Data Home Medications Medication Instructions Recorded Confirmed Last Taken Oxycodone HCl/Acetaminophen 1 tab PO BID PRN 02/09/14 09/22/14 09/22/14 [Percocet 10-325 mg] hydroCHLOROthiazide 25 mg PO QDAY 02/09/14 09/22/14 09/22/14 [Hydrochlorothiazide] Previous Rx's Medication Instructions Recorded Last Taken Type HYDROcodone/APAP 5-325 [[place] 1 each PO Q6HR PRN #20 tablet 02/09/14 09/22/14 Rx 5/325] Ibuprofen [Motrin] 800 mg PO Q8H #30 tablet 02/09/14 09/22/14 Rx Albuterol Sulfate [Proventil HFA] 1 - 2 puff IH Q4H PRN #1 hfa.aer.ad 09/22/14 Unknown Rx Azithromycin [Zithromax] 250 mg PO QDAY #6 tablet 09/22/14 Unknown Rx Ondansetron [Zofran] 4 mg PO Q8HR PRN #5 tablet 09/22/14 Unknown Rx predniSONE [Deltasone] 40 mg PO QDAY #10 tab 09/22/14 Unknown Rx Cyclobenzaprine [Flexeril 10 MG 10 mg PO TID PRN #30 tablet 12/05/14 Unknown Rx TAB] HYDROcodone/ACETAMINOPHEN [[place] 1 each PO Q8H PRN #21 tablet 12/05/14 Unknown Rx 7.5-325 mg TAB] Naproxen [Naprosyn TAB] 500 mg PO BID PRN #20 tablet 10/24/16 Unknown Rx traMADol [Ultram 50 MG tab] 50 mg PO Q6HR PRN #6 tablet 10/24/16 Unknown Rx Ibuprofen [Motrin] 600 mg PO Q8H PRN #15 tablet 05/23/17 Unknown Rx Penicillin V Potassium 500 mg PO Q8H #30 tablet 05/23/17 Unknown Rx ALBUTEROL Inhaler (OR & NICU) 1 puff IH Q4H PRN #1 inha 07/28/17 Unknown Rx [ProAir HFA Inhaler] Azithromycin [Zithromax Z-HEMANT] 250 mg PO QDAY #1 pack 07/28/17 Unknown Rx Benzonatate [Tessalon Perles] 100 mg PO Q8HR PRN #30 capsule 07/28/17 Unknown Rx Dextromethorphan Hb/Doxylamine 10 ml PO Q6H PRN #1 liquid 07/28/17 Unknown Rx [Safetussin Pm Liquid] Dextromethorphan/Benzocaine 1 each PO Q4H PRN #1 box 07/28/17 Unknown Rx [Cepacol Sorethroat-Cough Best] Naproxen 500 mg PO BID PRN #30 tablet 07/28/17 Unknown Rx methOCARBAMOL [Robaxin TAB] 500 mg PO Q6H PRN #15 tablet 01/23/18 Unknown Rx Acetaminophen/Codeine [Tylenol 1 tab PO Q6H PRN #15 tab 08/01/18 Unknown Rx /Codeine # 3 tab] Ibuprofen [Motrin 800 MG tab] 800 mg PO Q8HR PRN #20 tablet 08/01/18 Unknown Rx Allergies Allergy/AdvReac Type Severity Reaction Status Date / Time No Known Allergies Allergy Verified 07/27/17 21:06 ED Review of Systems ROS: Stated complaint: FACE PAIN/SWELLING Other details as noted in HPI Comment: All other systems reviewed and negative ED Past Medical Hx - Past Medical History Previous Medical History?: Yes Hx Hypertension: Yes Hx GERD: Yes Additional medical history: varicose veins. chronic back pain. pyriform sinus cancer - Surgical History Past Surgical History?: Yes Additional Surgical History: hernia repair, Trach, skin graft - Social History Smoking Status: Former Smoker Substance Use Type: None - Medications Home Medications: Home Medications Medication Instructions Recorded Confirmed Last Taken Type HYDROcodone/APAP 5-325 [[place] 1 each PO Q6HR PRN #20 tablet 02/09/14 09/22/14 09/22/14 Rx 5/325] Ibuprofen [Motrin] 800 mg PO Q8H #30 tablet 02/09/14 09/22/14 09/22/14 Rx Oxycodone HCl/Acetaminophen 1 tab PO BID PRN 02/09/14 09/22/14 09/22/14 History [Percocet 10-325 mg] hydroCHLOROthiazide 25 mg PO QDAY 02/09/14 09/22/14 09/22/14 History [Hydrochlorothiazide] Albuterol Sulfate [Proventil HFA] 1 - 2 puff IH Q4H PRN #1 hfa.aer.ad 09/22/14 Unknown Rx Azithromycin [Zithromax] 250 mg PO QDAY #6 tablet 09/22/14 Unknown Rx Ondansetron [Zofran] 4 mg PO Q8HR PRN #5 tablet 09/22/14 Unknown Rx predniSONE [Deltasone] 40 mg PO QDAY #10 tab 09/22/14 Unknown Rx Cyclobenzaprine [Flexeril 10 MG 10 mg PO TID PRN #30 tablet 12/05/14 Unknown Rx TAB] HYDROcodone/ACETAMINOPHEN [[place] 1 each PO Q8H PRN #21 tablet 12/05/14 Unknown Rx 7.5-325 mg TAB] Naproxen [Naprosyn TAB] 500 mg PO BID PRN #20 tablet 10/24/16 Unknown Rx traMADol [Ultram 50 MG tab] 50 mg PO Q6HR PRN #6 tablet 10/24/16 Unknown Rx Ibuprofen [Motrin] 600 mg PO Q8H PRN #15 tablet 05/23/17 Unknown Rx Penicillin V Potassium 500 mg PO Q8H #30 tablet 05/23/17 Unknown Rx ALBUTEROL Inhaler (OR & NICU) 1 puff IH Q4H PRN #1 inha 07/28/17 Unknown Rx [ProAir HFA Inhaler] Azithromycin [Zithromax Z-HEMANT] 250 mg PO QDAY #1 pack 07/28/17 Unknown Rx Benzonatate [Tessalon Perles] 100 mg PO Q8HR PRN #30 capsule 07/28/17 Unknown Rx Dextromethorphan Hb/Doxylamine 10 ml PO Q6H PRN #1 liquid 07/28/17 Unknown Rx [Safetussin Pm Liquid] Dextromethorphan/Benzocaine 1 each PO Q4H PRN #1 box 07/28/17 Unknown Rx [Cepacol Sorethroat-Cough Best] Naproxen 500 mg PO BID PRN #30 tablet 07/28/17 Unknown Rx methOCARBAMOL [Robaxin TAB] 500 mg PO Q6H PRN #15 tablet 01/23/18 Unknown Rx Acetaminophen/Codeine [Tylenol 1 tab PO Q6H PRN #15 tab 08/01/18 Unknown Rx /Codeine # 3 tab] Ibuprofen [Motrin 800 MG tab] 800 mg PO Q8HR PRN #20 tablet 08/01/18 Unknown Rx ED Physical Exam - General Limitations: Physical Limitation - Other Other exam information: General: No limitations, patient is alert in no acute distress Head exam: Atraumatic, normocephalic Eyes exam: Normal appearance ENT: Moist mucous membrane, normal oropharynx Neck exam: Normal inspection, full range of motion, no meningismus, tracheostomy without stridor Respiratory exam: Clear to auscultation bilateral, no wheezes, rales, crackles Cardiovascular: Normal rate and rhythm, normal heart sounds Abdomen: Soft, nondistended, and nontender, with normal bowel sounds, no rebound, or guarding Extremity: Full range of motion normal inspection no deformity Back: Normal Inspection, full range of motion, no tenderness Neurologic: Alert, oriented x3, cranial nerves intact, no motor or sensory deficit Psychiatric: normal affect, normal mood Skin: Warm, dry, intact ED Course Vital Signs 08/07/18 08/07/18 08/07/18 02:26 04:38 04:40 Temperature 98 F Pulse Rate 68 68 Respiratory 13 18 16 Rate Blood Pressure 105/57 Blood Pressure 105/57 118/64 [Right] O2 Sat by Pulse 97 100 99 Oximetry 08/07/18 05:28 Temperature Pulse Rate 67 Respiratory 16 Rate Blood Pressure Blood Pressure 114/71 [Right] O2 Sat by Pulse 100 Oximetry ED Medical Decision Making - Medical Decision Making Patient presents to the Hospital complaining of chronic pain without acute changes. No distress in the ED. He received 1 dose of IV Dilaudid and will be discharged to follow-up with his pain medicine doctor. - Differential Diagnosis chronic pain Critical Care Time: No Critical care attestation.: If time is entered above; I have spent that time in minutes in the direct care of this critically ill patient, excluding procedure time. ED Disposition Clinical Impression: Chronic neck pain Disposition: DC- TO HOME OR SELFCARE Is pt being admited?: No Does the pt Need Aspirin: No Condition: Stable Instructions: Chronic Pain (ED) Additional Instructions: Continue current medication and follow-up with your pain management doctor. Follow up with your doctor. Return if symptoms worsen as indicated by your discharge instructions Time of Disposition: 06:09
[2018-08-07 06:50] VITALS: BP 125/76
== END 2018-08-07 06:51 | disposition home or self-care (01) ==
LOC: ED 02:05
DX: G89.29 Other chronic pain (principal); M54.2 Cervicalgia; K21.9 Gastro-esophageal reflux disease without esophagitis; Z87.891 Personal history of nicotine dependence
CPT/HCPCS: 96374; 96375; 99283; J1170; J2405

== ENCOUNTER 2019-01-08 10:56 | Emergency (ER) | payer MEDICAID ==
[2019-01-08 11:03] VITALS: BP 106/67
--- NOTE | 2019-01-08 11:09 | Event Note ---
ED Screening Note ED Screening Note: co severe l ear pain and neck pain HAS [employer] WORK UP ON HIS BODY CT done per pt was normal See HPI power port R sclavian This initial assessment/diagnostic orders/clinical plan/treatment(s) is/are subject to change based on patients health status, clinical progression and re- assessment by fellow clinical providers in the ED. Further treatment and workup at subsequent clinical providers discretion. Patient/guardian urged not to elope from the ED as their condition may be serious if not clinically assessed and managed. Initial orders include:
--- NOTE | 2019-01-08 11:29 | Emergency Department Report ---
ED ENT HPI - General Chief complaint: Earache Stated complaint: LT EAR PAIN Time Seen by Provider: 01/08/19 11:05 Source: patient Mode of arrival: Ambulatory Limitations: No Limitations - History of Present Illness MD complaint: ear pain -: days(s) (2) Location: L ear Severity: moderate Quality: sharp, dull - Related Data Allergies Allergy/AdvReac Type Severity Reaction Status Date / Time No Known Allergies Allergy Verified 01/08/19 10:59 ED Dental HPI - General Chief complaint: Earache Stated complaint: LT EAR PAIN Time Seen by Provider: 01/08/19 11:05 Source: patient Mode of arrival: Ambulatory Limitations: No Limitations - Related Data Allergies Allergy/AdvReac Type Severity Reaction Status Date / Time No Known Allergies Allergy Verified 01/08/19 10:59 ED Review of Systems ROS: Stated complaint: LT EAR PAIN Other details as noted in HPI Comment: All other systems reviewed and negative Constitutional: denies: chills, fever ENT: ear pain. denies: congestion Respiratory: denies: cough, orthopnea Cardiovascular: denies: chest pain, palpitations Gastrointestinal: denies: abdominal pain, nausea, vomiting Musculoskeletal: denies: back pain Neurological: denies: weakness ED Past Medical Hx - Past Medical History Hx Hypertension: Yes Hx GERD: Yes Additional medical history: varicose veins. chronic back pain. pyriform sinus cancer - Surgical History Additional Surgical History: hernia repair, Trach, skin graft - Social History Smoking Status: Never Smoker Substance Use Type: None ED Physical Exam - General Limitations: No Limitations General appearance: alert, in no apparent distress - Head Head exam: Present: atraumatic, normocephalic, normal inspection - Eye Eye exam: Present: normal appearance, PERRL - ENT ENT exam: Present: normal exam, normal orophraynx, mucous membranes moist, other (left tympanic membrane erythema.) - Neck Neck exam: Present: normal inspection, full ROM. Absent: tenderness, meningismus, lymphadenopathy, thyromegaly - Respiratory Respiratory exam: Present: normal lung sounds bilaterally - Cardiovascular Cardiovascular Exam: Present: regular rate, normal rhythm, normal heart sounds - GI/Abdominal GI/Abdominal exam: Present: soft, normal bowel sounds. Absent: distended, guarding, rebound, rigid, organomegaly, mass, bruit, pulsatile mass - Extremities Exam Extremities exam: Present: normal inspection, full ROM, normal capillary refill. Absent: tenderness, pedal edema, calf tenderness - Back Exam Back exam: Present: normal inspection, full ROM. Absent: tenderness, CVA tenderness (R), CVA tenderness (L), muscle spasm, paraspinal tenderness, vertebral tenderness - Neurological Exam Neurological exam: Present: alert, oriented X3, CN II-XII intact, normal gait, reflexes normal - Skin Skin exam: Present: warm ED Course Vital Signs 01/08/19 11:02 Temperature 98.3 F Pulse Rate 95 H Respiratory 16 Rate Blood Pressure 106/67 O2 Sat by Pulse 98 Oximetry Critical care attestation.: If time is entered above; I have spent that time in minutes in the direct care of this critically ill patient, excluding procedure time. ED Disposition Clinical Impression: Left otitis media Disposition: - TO HOME OR SELFCARE Is pt being admited?: No Condition: Stable Instructions: Otitis Media (ED) Referrals: [facility] [Provider Group] - 3-5 Days
== END 2019-01-08 11:47 | disposition home or self-care (01) ==
LOC: ED 10:56
DX: H66.92 Otitis media, unspecified, left ear (principal); I10 Essential (primary) hypertension; K21.9 Gastro-esophageal reflux disease without esophagitis
CPT/HCPCS: 99282

== ENCOUNTER 2019-03-06 09:40 | Emergency (ER) | payer MEDICAID ==
[2019-03-06] MEDS ORDERED: ZOFRAN IV ONE ×2 (10:43→16:10)
[2019-03-06] MEDS ORDERED: DILAUDID IV ONE ×2 (10:43→16:10)
--- NOTE | 2019-03-06 11:25 | Emergency Department Report ---
ED ENT HPI - General Chief complaint: Dental/Oral Stated complaint: JAW PAIN Time Seen by Provider: 03/06/19 10:24 Source: EMS Mode of arrival: Stretcher Limitations: Other - History of Present Illness Initial comments: 54-year-old male with a past medical history of piriformis cancer, tracheostomy, GERD, and hypertension, as as to the hospital complaining of pain and swelling to the left side of his jaw making it difficult for him to breathe 2 days. Pain is moderate and worse with palpation He denies any difficulty swallowing. Patient was seen by me in July for neck pain a CT showed findings concerning for recurrent cancer. Patient is currently in pain management and takes narcotic medication. Patient is not currently undergoing any radiation or chemotherapy treatment. His [facility] doctor is Dr Flory Rhodes ([phone]) and [facility] at [phone]. pt was here on 01/29 (under different med record number) ct showed the follwing IMPRESSION: 1. There is a large ill-defined mass in the left parotid space with invasion of the C1 vertebral body and adjacent skull base as described in detail above. 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 2. Extensive infiltrative changes in the subcutaneous fat of the left suprahyoid neck and cheek and thickening of the left platysma muscle as described above. While this could represent cellulitis there is no indication of abscess. Differential diagnosis is considered above. 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 Ly, oncologist. Pt had similar CT findings on 01/06/19 showing this mass w/ destruction of C1 and the skull base. Pt had f/u appt w/ his oncologist Dr Perez on 01/11/19, results and palliative care vs hospice were discussed. H aminataever, since pt is having new and worsening pain, would like pt transferred to [facility]. Patient accepted by Dr Olmedo, hospitalist. sister at bedside at 4:20am. His last chemotherapy was one month ago but it has since been discontinued. Hospice offered at that time but patient declined. - Related Data Previous Rx's Medication Instructions Recorded Last Taken Type Ondansetron [Zofran Odt] 4 mg PO Q8HR PRN #14 tab.rapdis 01/08/19 Unknown Rx traMADol [Ultram 50 MG tab] 50 mg PO Q4HR PRN #14 tablet 01/08/19 Unknown Rx Amoxicillin/Potassium Clav 1 each PO BID #20 tablet 03/06/19 Unknown Rx [Augmentin 875-125 Tablet] Potassium Chloride 20 meq PO BID 3 Days liquid 03/06/19 Unknown Rx Allergies Allergy/AdvReac Type Severity Reaction Status Date / Time No Known Allergies Allergy Verified 03/06/19 12:06 ED Dental HPI - General Chief complaint: Dental/Oral Stated complaint: JAW PAIN Time Seen by Provider: 03/06/19 10:24 Source: EMS Mode of arrival: Stretcher Limitations: Other - Related Data Previous Rx's Medication Instructions Recorded Last Taken Type Ondansetron [Zofran Odt] 4 mg PO Q8HR PRN #14 tab.rapdis 01/08/19 Unknown Rx traMADol [Ultram 50 MG tab] 50 mg PO Q4HR PRN #14 tablet 01/08/19 Unknown Rx Amoxicillin/Potassium Clav 1 each PO BID #20 tablet 03/06/19 Unknown Rx [Augmentin 875-125 Tablet] Potassium Chloride 20 meq PO BID 3 Days liquid 03/06/19 Unknown Rx Allergies Allergy/AdvReac Type Severity Reaction Status Date / Time No Known Allergies Allergy Verified 03/06/19 12:06 ED Review of Systems ROS: Stated complaint: JAW PAIN Other details as noted in HPI Comment: All other systems reviewed and negative ED Past Medical Hx - Past Medical History Hx Hypertension: Yes Hx GERD: Yes Additional medical history: varicose veins. chronic back pain. pyriform sinus cancer - Surgical History Additional Surgical History: hernia repair, Trach, skin graft - Social History Smoking Status: Former Smoker Substance Use Type: None - Medications Home Medications: Home Medications Medication Instructions Recorded Confirmed Last Taken Type Ondansetron [Zofran Odt] 4 mg PO Q8HR PRN #14 tab.rapdis 01/08/19 Unknown Rx traMADol [Ultram 50 MG tab] 50 mg PO Q4HR PRN #14 tablet 01/08/19 Unknown Rx Amoxicillin/Potassium Clav 1 each PO BID #20 tablet 03/06/19 Unknown Rx [Augmentin 875-125 Tablet] Potassium Chloride 20 meq PO BID 3 Days liquid 03/06/19 Unknown Rx ED Physical Exam - General Limitations: Other - Other Other exam information: General: No acute distress Eyes: Normal appearance, pupils equal reactive to light, extraocular movements intact ENT: Swelling to left side of jaw and that ear. No tongue swelling or gingival swelling Neck: Normal appearance, no C-spine tenderness, no meningismus, tracheostomy Chest: Clear to auscultation bilaterally, no wheezes, rales, or crackles Cardiovascular: Regular rate and rhythm Abdomen: Soft, nondistended, nontender, no rebound or guarding, normal bowel sounds Back: Normal inspection, nontender Extremity: Normal inspection, no deformity, full range of motion Neuro: Alert and oriented 3, speech clear, no gross motor or sensory deficit Skin: No rash, warmth, or erythema ED Course Vital Signs 03/06/19 03/06/19 03/06/19 09:42 11:00 12:00 Temperature 98.4 F Pulse Rate 61 60 61 Respiratory 18 18 18 Rate Blood Pressure 123/75 Blood Pressure 114/78 115/69 [Left] O2 Sat by Pulse 99 94 97 Oximetry - Consultations Consultation #1: 03/06/19 16:35 case d/w ENT at [facility] yung. he is familiar with the pt. Known c1, and carotid invasion. No airway issues. Rec d/w Heme/onc 03/06/19 16:[address] Butt with hematology oncology. She reviewed no and states that patient has spelled multiple rounds of chemotherapy. He is not a candidate here for any chemotherapy or palliative radiation. Hospice was offered to the patient. She will make a note for her palliative oncology team to reach out to patient. ED Medical Decision Making - Lab Data Result diagrams: 03/06/19 10:49 03/06/19 10:49 Lab Results 03/06/19 03/06/19 03/06/19 Range/Units 10:49 10:49 Unknown WBC 6.1 (4.5-11.0) K/mm3 RBC 3.78 (3.65-5.03) M/mm3 Hgb 10.4 L (11.8-15.2) gm/dl Hct 31.9 L (35.5-45.6) % MCV 85 (84-94) fl MCH 28 (28-32) pg MCHC 33 (32-34) % RDW 14.8 (13.2-15.2) % Plt Count 401 (140-440) K/mm3 Lymph % (Auto) 11.7 L (13.4-35.0) % [place] % (Auto) 6.9 (0.0-7.3) % Eos % (Auto) 0.5 (0.0-4.3) % Baso % (Auto) 0.8 (0.0-1.8) % Lymph # 0.7 L (1.2-5.4) K/mm3 [place] # 0.4 (0.0-0.8) K/mm3 Eos # 0.0 (0.0-0.4) K/mm3 Baso # 0.0 (0.0-0.1) K/mm3 Seg Neutrophils % 80.1 H (40.0-70.0) % Seg Neutrophils # 4.9 (1.8-7.7) K/mm3 Sodium 135 L (137-145) mmol/L Potassium 2.9 L* (3.6-5.0) mmol/L Chloride 92.5 L (98-107) mmol/L Carbon Dioxide 30 (22-30) mmol/L Anion Gap 15 mmol/L BUN 6 L (9-20) mg/dL Creatinine 0.9 (0.8-1.5) mg/dL Estimated GFR > 60 ml/min BUN/Creatinine Ratio 7 % Glucose 87 (75-100) mg/dL Calcium 9.2 (8.4-10.2) mg/dL Magnesium 1.90 (1.7-2.3) mg/dL - Radiology Data Radiology results: report reviewed CT MAXILLOFACIAL WITH CONTRAST INDICATION / CLINICAL INFORMATION: Patient with the history of laryngectomy for laryngeal carcinoma with previously demonstrated recurrence or second primary tumor with skull base invasion. Patient presents with left jaw pain. TECHNIQUE: All CT scans at this location are performed using CT dose reduction for ALARA by means of automated exposure control. COMPARISON: CTA neck with intravenous contrast also dated 03/06/2019. Comparison also made to CT neck 01/29/2019. FINDINGS: Please refer to CT neck for description of the skull base, parotid space and neurovascular compartment of the left neck. As carlos cribed on CTA neck there is extensive tumor burden at the skull base bone destruction at the lateral mass of the C1 vertebrae, left occipital condyle, left temporal bone and left sphenoid bone. There is extension of disease into the left sphenoid sinus which has developed since prior study. There is severe destruction of bone along the floor of the carotid canal and posterior wall of the carotid canal. Disease in the mastoid air cells on the left may be inflammatory disease or retained secretions secondary to eustachian tube obstruction by tumor. Tumoral involvement of the mastoid air cells cannot be excluded. Evaluation of the paranasal sinuses is remarkable for extensive inflammatory mucosal disease involving multiple ethmoid air cells and the maxillary sinuses bilaterally. IMPRESSION: 1. Extensive density of the skull base and C1 vertebral destruction secondary to head and neck malignancy as described above. Please refer to CTA neck report which is dictated separately. 2. There has been progression of disease with increased skull base involvement in comparison to CT neck dated 01/29/2019. 3. Interval development of bilateral ethmoid and maxillary sinusitis CT NECK WITH INTRAVENOUS CONTRAST AND MULTIPLANAR RECONSTRUCTION CLINICAL HISTORY: Head and neck malignancy. Left jaw pain and swelling. TECHNIQUE: 2.5 mm thick contiguous axial scans were obtained from the skull base down to the aortic arch during intravenous contrast administration. In addition to evaluation of axial source images sagittal and coronal multiplanar reconstructions were produced and reviewed for this report. COMPARISON: CT with contrast 01/29/2019. FINDINGS: There is a large mass at the left skull base with extensive bony involvement. There is distraction of the left lateral mass of the C1 vertebrae. There is distraction of the left occipital condyle and occipital bone. There is extension of disease into the sphenoid sinus on the left. Sphenoid extension of disease has developed since previous study. Disease is present in the medial aspect of the left temporal bone. There is destruction of the jugular foramina and posterior wall and floor of the carotid canal. Opacification of multiple mastoid air cells is noted on the left. This could be secondary to tumor or retained secretions due to eustachian tube dysfunction. There is involvement of the deep lobe of the parotid gland. Bulky tumor is present in the deep neck on the left involving the neurovascular sheath and parapharyngeal space. There is encasement of the left internal carotid artery by tumor. Left internal carotid artery is markedly decreased in size secondary to tumor encasement. Similar findings are seen in this area on previous study. Patient is noted status post injected November. Tracheostomy tube is present in satisfactory position. IMPRESSION: 1. Extensive disease progression with increas ed left skull base destruction as described above. This could be recurrence the patient's previously treated laryngeal malignancy or could be secondary to a second primary neoplasm as described on CTA neck dated 01/29/2019. 2. Involvement of the neurovascular sheath by tumor with encasement left internal carotid artery and marked decreased caliber of the LICA secondary to tumoral encasement and compression. - Medical Decision Making Patient has worsening invasion of tumor. Patient is not a treatment candidate. Discussed case with patient and sister encouraged him to continue follow-up with hospice. Antibiotics will be prescribed for sinusitis. By mouth potassium given for mild hypokalemia and will be prescribed for several days. - Differential Diagnosis cancer, infection Critical Care Time: No Critical care attestation.: If time is entered above; I have spent that time in minutes in the direct care of this critically ill patient, excluding procedure time. ED Disposition Clinical Impression: Laryngeal cancer, Neck mass, Hypokalemia, Invasion of adjacent tissue by neoplasm determined by radiology examination, Acute sinusitis, Status post tracheostomy, Chronic pain Disposition: DC- TO HOME OR SELFCARE Is pt being admited?: No Does the pt Need Aspirin: No Condition: Stable Instructions: Hypokalemia (ED), Sinusitis (ED), Chronic Pain (ED), Tracheostomy Care (ED) Additional Instructions: Take the medications as prescribed. Follow-up with your doctor or with a doctor/clinic provided. Return is symptoms worsen as indicated by the discharge instructions. Follow-up with the doctors to arrange for hospice care. Prescriptions: Amoxicillin/Potassium Clav [Augmentin 875-125 Tablet] 1 each PO BID #20 tablet Potassium Chloride 20 meq PO BID 3 Days liquid Referrals: [facility], oncology [Other] - 2-3 Days Time of Disposition: 17:15
[2019-03-06 11:43] LABS: Basophils % (Auto) 0.8 % (0.0-1.8); Eosinophils % (Auto) 0.5 % (0.0-4.3); Hematocrit 31.9 % (35.5-45.6); Hemoglobin 10.4 gm/dl (11.8-15.2); Lymphocytes # (Auto) 0.7 K/mm3 (1.2-5.4); Lymphocytes % (Auto) 11.7 % (13.4-35.0); Mean Corpuscular HGB Conc 33 % (32-34); Mean Corpuscular Volume 85 fl (84-94); Monocytes # (Auto) 0.4 K/mm3 (0.0-0.8); Monocytes % (Auto) 6.9 % (0.0-7.3); Platelet Count 401 K/mm3 (140-440); Red Blood Count 3.78 M/mm3 (3.65-5.03); Red Cell Distribution Width 14.8 % (13.2-15.2)
[2019-03-06 11:44] LABS: BUN/Creatinine Ratio 7; Blood Urea Nitrogen 6 mg/dL (9-20); Calcium 9.2 mg/dL (8.4-10.2); Hemolysis Index 4
[2019-03-06] MEDS ORDERED: POTASSIUM CHLORIDE PO ONE (12:05)
--- NOTE | 2019-03-06 14:51 | Cat Scan Report ---
CT NECK WITH INTRAVENOUS CONTRAST AND MULTIPLANAR RECONSTRUCTION CLINICAL HISTORY: Head and neck malignancy. Left jaw pain and swelling. TECHNIQUE: 2.5 mm thick contiguous axial scans were obtained from the skull base down to the aortic arch during intravenous contrast administration. In addition to evaluation of axial source images sagittal and co barry multiplanar reconstructions were produced and reviewed for this report. COMPARISON: CT with contrast 01/29/2019. FINDINGS: There is a large mass at the left skull base with extensive bony involvement. There is dist raction of the left lateral mass of the C1 vertebrae. There is distraction of the left occipital cond yle and occipital bone. There is extension of disease into the sphenoid sinus on the left. Sphenoid e xtension of disease has developed since previous study. Disease is present in the medial aspect of th e left temporal bone. There is destruction of the jugular foramina and posterior wall and floor of th e carotid canal. Opacification of multiple mastoid air cells is noted on the left. This could be seco ndary to tumor or retained secretions due to eustachian tube dysfunction. There is involvement of the deep lobe of the parotid gland. Bulky tumor is present in the deep neck o n the left involving the neurovascular sheath and parapharyngeal space. There is encasement of the le ft internal carotid artery by tumor. Left internal carotid artery is markedly decreased in size secon pee to tumor encasement. Similar findings are seen in this area on previous study. Patient is noted status post injected November. Tracheostomy tube is present in satisfactory position. IMPRESSION: 1. Extensive disease progression with increased left skull base destruction as described above. This could be recurrence the patient's previously treated laryngeal malignancy or could be secondary to a second primary neoplasm as described on CTA neck dated 01/29/2019. 2. Involvement of the neurovascular sheath by tumor with encasement left internal carotid artery and marked decreased caliber of the LICA secondary to tumoral encasement and compression. I discussed the findings of this examination with Dr. Taylor of the emergency department at [facility] at about 1340 [address] standard time. Contrast dose report: Omnipaque 350: 75 mL administered intravenously. All CT imaging studies performed at this facility utilize dose modulation, iterative reconstruction o r weight based dosing, if appropriate, to obtain the lowest achievable radiation dose. Signer Name: Chan Singleton MD Signed: 03/06/2019 2:47 PM Workstation Name: [id number]
--- NOTE | 2019-03-06 15:15 | Cat Scan Report ---
CT MAXILLOFACIAL WITH CONTRAST INDICATION / CLINICAL INFORMATION: Patient with the history of laryngectomy for laryngeal carcinoma with previously demonstrated recurre nce or second primary tumor with skull base invasion. Patient presents with left jaw pain. TECHNIQUE: All CT scans at this location are performed using CT dose reduction for ALARA by means of automated e xposure control. COMPARISON: CTA neck with intravenous contrast also dated 03/06/2019. Comparison also made to CT neck 01/29/2019. FINDINGS: Please refer to CT neck for description of the skull base, parotid space and neurovascular compartmen t of the left neck. As described on CTA neck there is extensive tumor burden at the skull base bone destruction at the la teral mass of the C1 vertebrae, left occipital condyle, left temporal bone and left sphenoid bone. Th ere is extension of disease into the left sphenoid sinus which has developed since prior study. There is severe destruction of bone along the floor of the carotid canal and posterior wall of the carotid canal. Disease in the mastoid air cells on the left may be inflammatory disease or retained secretions secon pee to eustachian tube obstruction by tumor. Tumoral involvement of the mastoid air cells cannot be excluded. Evaluation of the paranasal sinuses is remarkable for extensive inflammatory mucosal disease involvin g multiple ethmoid air cells and the maxillary sinuses bilaterally. IMPRESSION: 1. Extensive density of the skull base and C1 vertebral destruction secondary to head and neck malign madhu as described above. Please refer to CTA neck report which is dictated separately. 2. There has been progression of disease with increased skull base involvement in comparison to CT ne ck dated 01/29/2019. 3. Interval development of bilateral ethmoid and maxillary sinusitis. Contrast dose report: Omnipaque 350: 75 mL administered intravenously. Signer Name: Chan Singleton MD Signed: 03/06/2019 3:11 PM Workstation Name: [id number]
[2019-03-06] MEDS ORDERED: FLUSH HEPARIN IV ONE (17:19)
[2019-03-06 18:06] VITALS: BP 133/80
[2019-03-07] MEDS ORDERED: FLUSH HEPARIN IV ONE (16:47)
== END 2019-03-06 17:28 | disposition home or self-care (01) ==
LOC: ED 09:40
DX: C32.9 Malignant neoplasm of larynx, unspecified (principal); R22.1 Localized swelling, mass and lump, neck; E87.6 Hypokalemia; J32.9 Chronic sinusitis, unspecified; J01.90 Acute sinusitis, unspecified; G89.29 Other chronic pain; I10 Essential (primary) hypertension; K21.9 Gastro-esophageal reflux disease without esophagitis; Z87.891 Personal history of nicotine dependence; Z79.899 Other long term (current) drug therapy
CPT/HCPCS: 36415; 70487; 70491; 80048; 83735; 85025; 96374; 96375; 96376; 99284; J1170; J1642; J2405; Q9967

== ENCOUNTER 2019-04-21 20:13 | Emergency (ER) | payer MEDICAID ==
--- NOTE | 2019-04-21 20:48 | Event Note ---
ED Screening Note Date of service: 04/21/19 Time: 20:21 ED Screening Note: 54 y o male with PMH of throat cancer presents with generalized muscle spasm pt is on hospice, HTN currently on chemo: may 10 throat surgery- pain pump attached This initial assessment/diagnostic orders/clinical plan/treatment(s) is/are subject to change based on patients health status, clinical progression and re- assessment by fellow clinical providers in the ED. Further treatment and workup at subsequent clinical providers discretion. Patient/guardian urged not to elope from the ED as their condition may be serious if not clinically assessed and managed. Initial orders include:
[2019-04-21] MEDS ORDERED: ACETAMINOPHEN 325 MG TAB PO ONE (22:19)
[2019-04-21] MEDS ORDERED: ACETAMINOPHEN 325 MG/10.15 ML ORAL LIQD UNIT DOSE PO ONE (22:34)
--- NOTE | 2019-04-21 22:49 | Emergency Department Report ---
ED General Adult HPI - General Chief complaint: Pain General Stated complaint: MUSCLE SPASMS Time Seen by Provider: 04/21/19 20:21 Source: patient Mode of arrival: Ambulatory Limitations: No Limitations - History of Present Illness Initial comments: Mr. Canela is a 54 yo male with hx of laryngeal cancer s/p resection with tracheostomy who presents with muscle spasms. I spoke with caregiver and neighbor Mike . I also spoke with Sister Aparna . Mike witnessed the episode. While walking from car to home, Mr. Canela had uncontrollable body shaking. He was conscious. No incontinence. Has hx of hypokalemia on supplements. Sister feels low potassium may be a problem. Mr. Canela is now ambulatory with pain at the site of invasive cancer of his left jaw. According to previous documentation by my colleague in February, oncologist at [facility] was consulted. Hospice therapy was intiated at that time. Sister conc erned that he is no longer a candidate for aggressive treatment but he is going to resume palliative chemotherapy. He has hospice nurse who visits weekly. -: Sudden, This evening Location: face (left jaw pain) Consistency: constant Improves with: rest Worsens with: none Associated Symptoms: denies other symptoms - Related Data Previous Rx's Medication Instructions Recorded Last Taken Type Ondansetron [Zofran Odt] 4 mg PO Q8HR PRN #14 tab.rapdis 01/08/19 Unknown Rx traMADol [Ultram 50 MG tab] 50 mg PO Q4HR PRN #14 tablet 01/08/19 Unknown Rx Amoxicillin/Potassium Clav 1 each PO BID #20 tablet 03/06/19 Unknown Rx [Augmentin 875-125 Tablet] Potassium Chloride 20 meq PO BID 3 Days liquid 03/06/19 Unknown Rx Allergies Allergy/AdvReac Type Severity Reaction Status Date / Time No Known Allergies Allergy Verified 03/06/19 12:06 ED Review of Systems ROS: Stated complaint: MUSCLE SPASMS Other details as noted in HPI Comment: All other systems reviewed and negative Constitutional: denies: fever, malaise Respiratory: denies: cough, shortness of breath Gastrointestinal: denies: abdominal pain ED Past Medical Hx - Past Medical History Previous Medical History?: Yes Hx Hypertension: Yes Hx GERD: Yes Hx of Cancer: Yes (Throat) Additional medical history: varicose veins, TRACH. chronic back pain. pyriform sinus cancer - Surgical History Past Surgical History?: Yes Additional Surgical History: hernia repair, Trach, skin graft - Social History Smoking Status: Unknown if ever smoked Substance Use Type: None - Medications Home Medications: Home Medications Medication Instructions Recorded Confirmed Last Taken Type Ondansetron [Zofran Odt] 4 mg PO Q8HR PRN #14 tab.rapdis 01/08/19 Unknown Rx traMADol [Ultram 50 MG tab] 50 mg PO Q4HR PRN #14 tablet 01/08/19 Unknown Rx Amoxicillin/Potassium Clav 1 each PO BID #20 tablet 03/06/19 Unknown Rx [Augmentin 875-125 Tablet] Potassium Chloride 20 meq PO BID 3 Days liquid 03/06/19 Unknown Rx ED Physical Exam - General Limitations: No Limitations General appearance: alert, in no apparent distress, other (large masslike process left jaw tracheostomy in place) - Head Head exam: Present: atraumatic, normocephalic - Eye Eye exam: Present: normal appearance - ENT ENT exam: Present: mucous membranes moist - Neck Neck exam: Present: normal inspection, full ROM. Absent: tenderness, meningismus - Respiratory Respiratory exam: Present: normal lung sounds bilaterally. Absent: respiratory distress, wheezes, rales, rhonchi - Cardiovascular Cardiovascular Exam: Present: regular rate, normal rhythm, normal heart sounds. Absent: systolic murmur, diastolic murmur, rubs, gallop - GI/Abdominal GI/Abdominal exam: Present: soft, normal bowel sounds. Absent: distended, tenderness, guarding, rebound - Extremities Exam Extremities exam: Present: normal inspection - Back Exam Back exam: Present: normal inspection - Neurological Exam Neurological exam: Present: alert, oriented X3 - Psychiatric Psychiatric exam: Present: normal affect, normal mood - Skin Skin exam: Present: warm, dry, intact, normal color. Absent: rash ED Course Vital Signs 04/21/19 04/21/19 04/21/19 20:25 21:59 23:00 Temperature 98.1 F 98.2 F Pulse Rate 96 H 74 Respiratory 18 20 Rate Blood Pressure 137/96 148/98 Blood Pressure 152/100 [Left] O2 Sat by Pulse 100 93 99 Oximetry 04/21/19 04/22/19 04/22/19 23:30 00:00 01:00 Temperature Pulse Rate Respiratory Rate Blood Pressure 149/99 154/108 152/101 Blood Pressure [Left] O2 Sat by Pulse 100 98 97 Oximetry 04/22/19 01:30 Temperature Pulse Rate Respiratory Rate Blood Pressure 159/108 Blood Pressure [Left] O2 Sat by Pulse 99 Oximetry ED Medical Decision Making - Lab Data Result diagrams: 04/21/19 22:32 04/21/19 22:32 - Medical Decision Making Mr. Canela has hx of extensive, invasive oropharyngeal cancer on hospice care with weekly visits by hospice nurse. He developed muscle spasms today. DDX: hypokalemia, seizure, advancing cancer causing neurological or cardiovascular insult According to CT findings in February, Mr. 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 Normal potassium. After lab review, prerenal BASILIO revealed in labs suspected due to poor po intake. Given IVF for supportive care. I updated sister and caregiver of status. dc'd home to continue palliative care. While in the emergency Department no evidence of seizure or spasm. He is ambulatory without difficulty. He is stable for home. Critical care attestation.: If time is entered above; I have spent that time in minutes in the direct care of this critically ill patient, excluding procedure time. ED Disposition Clinical Impression: Laryngeal cancer, Muscle spasm, BASILIO (acute kidney injury) Disposition: DC-01 TO HOME OR SELFCARE Is pt being admited?: No Does the pt Need Aspirin: No Condition: Stable Instructions: Dehydration (ED) Referrals: PRIMARY CARE, [Primary Care Provider] - 3-5 Days
[2019-04-21 22:56] LABS: Basophils % (Auto) 0.1 % (0.0-1.8); Eosinophils % (Auto) 0.1 % (0.0-4.3); Hematocrit 35.6 % (35.5-45.6); Hemoglobin 11.6 gm/dl (11.8-15.2); Lymphocytes # (Auto) 0.9 K/mm3 (1.2-5.4); Lymphocytes % (Auto) 13.2 % (13.4-35.0); Mean Corpuscular HGB Conc 33 % (32-34); Mean Corpuscular Volume 86 fl (84-94); Monocytes # (Auto) 0.6 K/mm3 (0.0-0.8); Monocytes % (Auto) 8.4 % (0.0-7.3); Platelet Count 348 K/mm3 (140-440); Red Blood Count 4.17 M/mm3 (3.65-5.03)
[2019-04-21 23:34] LABS: Calcium 10.2 mg/dL (8.4-10.2)
[2019-04-21] MEDS ORDERED: SODIUM CHLORIDE 0.9% 1000 ML 1,000 ML IV ONE ×2 (23:38)
[2019-04-22 03:41] VITALS: BP 165/112
== END 2019-04-22 06:41 | disposition home or self-care (01) ==
LOC: ED 20:13
DX: C80.1 Malignant (primary) neoplasm, unspecified (principal); C78.39 Secondary malignant neoplasm of other respiratory organs; N17.9 Acute kidney failure, unspecified; I10 Essential (primary) hypertension; K21.9 Gastro-esophageal reflux disease without esophagitis; M54.89 Other dorsalgia; G89.29 Other chronic pain; Z98.890 Other specified postprocedural states; Z79.899 Other long term (current) drug therapy
CPT/HCPCS: 36415; 80048; 85025; 99283; J7030